=== PATIENT | female | born 1980 | race Caucasian/White ===

== ENCOUNTER 2021-07-28 17:11 | Outpatient (REF) | payer BC, SELFPAY | END 2021-07-28 17:12 | disposition home or self-care (01) | LOC: HO.LNP 17:11 | PROVIDERS: Visit Provider Internal Medicine | DX: Z20.822 Contact with and (suspected) exposure to COVID-19 (principal); J06.9 Acute upper respiratory infection, unspecified | CPT/HCPCS: U0003; U0005 ==

== ENCOUNTER 2025-04-22 10:04 | Outpatient (AMB) | payer OTHER, SELFPAY ==
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
[2025-04-22 10:10] VITALS: BP 132/76; PULSE 87; TEMP 36.6; O2SAT 98; BMI 34.5
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
== END 2025-04-22 10:54 | disposition home or self-care (01) ==
PROVIDERS: Visit Provider Nurse Practitioner Family
DX: M25.521 Pain in right elbow (principal)

== ENCOUNTER → 2025-04-22 10:04 | Outpatient (BNVA) | payer OTHER, SELFPAY | PROVIDERS: Visit Provider Nurse Practitioner Family ==